=== PATIENT | female | born 1940 | race Caucasian/White ===

== ENCOUNTER → 2018-06-10 | Outpatient (CLI) | payer MEDICARE ==
[~2018-06-10] MED LIST: ASPI81CH PO; ASPI81EC PO; ATEN25 PO; BENA20 PO; Benazepril HCl40 MG PO; Cardizem CD 24240 MG PO; DIGO.125 PO; DILT60 PO; IBUPROFEN 200MG PO; METO50 PO; XARELTO15 MG PO
== END | disposition home or self-care (01) ==
LOC: PLD 08:01 → LAB SHORT 08:01
DX: C44.719 Basal cell carcinoma of skin of left lower limb, including hip (principal)
CPT/HCPCS: 88305

== ENCOUNTER → 2020-05-03 | Outpatient (CLI) | payer MEDICARE | END | disposition home or self-care (01) | LOC: LAB SHORT 15:59 → PLD 15:59 | DX: D04.71 Carcinoma in situ of skin of right lower limb, including hip (principal); D22.71 Melanocytic nevi of right lower limb, including hip | CPT/HCPCS: 88305 ==

== ENCOUNTER → 2023-09-06 | Outpatient (CLI) | payer MEDICARE | LOC: LAB 12:04 → LAB SHORT 12:04 | DX: T81.40XA Infection following a procedure, unspecified, initial encounter (principal) | CPT/HCPCS: 87070; 87077; 87147; 87186; 87205 ==